=== PATIENT | female | born 1990 | race Caucasian/White ===

== ENCOUNTER 2017-05-15 10:07 | Emergency (ER) | payer BC | END 2017-05-15 13:12 | disposition left against medical advice (07) | LOC: UCCORT 10:07 | DX: H57.8 Other specified disorders of eye and adnexa (principal); Z53.21 Procedure and treatment not carried out due to patient leaving prior to being seen by health care provider; R05 Cough ==

== ENCOUNTER 2017-05-22 10:43 | Emergency (ER) | payer BC ==
[2017-05-22 12:45] VITALS: BP 104/71
--- NOTE | 2017-05-22 12:54 | UC ---
General HPI - HPI Summary HPI Summary: 27 yo female c/o worsening eye redness, discomfort over the past week. She was seen at [facility] one week ago, rx with "eye gel" for pink eye (not sure medication name). But eye sx are getting worse. Also was seen at the same time for chest congestion, she reports that xray was negative, given a script for tessalon perles, but not better. No ear pain, no rash, no GI sx. Does wear contact lenses (daily wear) but hasn't worn in a couple weeks. - History of Current Complaint Chief Complaint: UCEye Stated Complaint: BILATERAL EYE COMPLAINT Time Seen by Provider: 05/22/17 12:51 Hx Obtained From: Patient Hx Last Menstrual Period: 05/13/17 - Allergy/Home Medications Allergies/Adverse Reactions: Allergies Allergy/AdvReac Type Severity Reaction Status Date / Time Penicillins Allergy Unknown Verified 05/22/17 12:40 Reaction Details Home Medications: Home Medications Valeria Eye Gel TID 05/22/17 [History] PMH/Surg Hx/FS Hx/Imm Hx Previously Healthy: Yes - Surgical History Surgical History: Yes Surgery Procedure, Year, and Place: [place] teeth extraction - age 20 - Family History Known Family History: Positive: None, Cardiac Disease, Diabetes - Social History Alcohol Use: Occasionally Substance Use Type: None Smoking Status (MU): Never Smoked Tobacco - Immunization History Most Recent Influenza Vaccination: NOT IN 2017 Review of Systems Constitutional: Fatigue Skin: Negative Eyes: Other - see hpi ENT: Other - see hpi Respiratory: Negative - see hpi Cardiovascular: Negative Gastrointestinal: Negative Genitourinary: Negative Motor: Negative Neurovascular: Negative Musculoskeletal: Negative Neurological: Negative Psychological: Negative Is Patient Immunocompromised?: No All Other Systems Reviewed And Are Negative: Yes Physical Exam Triage Information Reviewed: Yes Appearance: Well-Nourished - sitting up, NAD. Vital Signs: Initial Vital Signs Temp 99 F 05/22/17 12:42 Pulse 84 05/22/17 12:42 Resp 16 05/22/17 12:42 BP 104/71 05/22/17 12:42 Pulse Ox 100 05/22/17 12:42 Vital Signs Reviewed: Yes Eyes: Positive: Other: - perrla eomi, sclerae injected, conj injected. watery drainage. Fluorescein OU - no ulcer / abrasion. + injected sclera. Eyes watery but eye exam - dry. ENT Exam: Normal ENT: Positive: Pharyngeal erythema - mild redness, TM dull Neck exam: Normal Neck: Positive: Supple, Nontender, No Lymphadenopathy Respiratory Exam: Normal Respiratory: Positive: Chest non-tender, Lungs clear, Normal breath sounds, No respiratory distress, No accessory muscle use Cardiovascular Exam: Normal Cardiovascular: Positive: RRR, No Murmur, Pulses Normal, Brisk Capillary Refill Abdominal Exam: Normal Musculoskeletal Exam: Normal - gait steady Neurological Exam: Normal - grossly nonfocal Psychological Exam: Normal - conversing easily and appropriately Skin Exam: Normal Course/Dx - Course Course Of Treatment: Reviewed coa / tx plan with pt. Questions as posed answered to the best of my ability. - Differential Dx - Multi-Symptom Provider Diagnoses: URI. Eye exam c/w scleritis, consider erythromycin sensitivity vs viral Discharge - Discharge Plan Condition: Stable Disposition: HOME Prescriptions: Albuterol HFA INHALER* [Ventolin HFA Inhaler*] 1 puff INH Q4H PRN #1 mdi PRN Reason: Wheezing Azithromyxin BECCA (NF) [Z-Becca (Zithromax) 250 mg tabs #6] 2 tab PO .TODAY, THEN 1 DAILY #6 tab Olopatadine 0.1% OPHTH (NF) [Patanol 0.1% OPHTH (NF)] 1 drop BOTH EYES Q4HR #1 btl Patient Education Materials: Upper Respiratory Infection (ED) Referrals: Non Staff,Doctor [Primary Care Provider] - Additional Instructions: Eye redness consistent with scleritis, you may discontinue eye erythromycin ointment. Patanol drops as needed - please bring with you to your eye doctor appointment. Follow up with your eye doctor as scheduled. Follow up with your primary care physician per routine. Seek medical attention for worse or new problems.
[2017-05-22] MEDS ORDERED: Tetracaine 0.5% OPTH.SOL 4 ML* 1 DROP BTL BOTH EYES ONE (13:01)
[2017-05-22] MEDS ORDERED: Fluorescein Sodium TOPICAL* 1 MG TEST OPHTHALMIC ONE (13:02)
== END 2017-05-22 13:50 | disposition home or self-care (01) ==
LOC: UCCORT 10:43
DX: H15.003 Unspecified scleritis, bilateral (principal); J06.9 Acute upper respiratory infection, unspecified; Z88.0 Allergy status to penicillin
CPT/HCPCS: 99212; A9270-GY; G0463